=== PATIENT | male | born 1950 | race Caucasian/White ===

== ENCOUNTER 2020-09-06 13:06 | Inpatient (IN) ==
[2020-09-06] MEDS ORDERED: Isovue-370 500 ML BOTTLE IVP ONE (13:20)
[2020-09-06] MEDS ORDERED: Aspirin 81 MG TAB.CHEW PO ONE (13:20)
[2020-09-06 13:32] LABS: Hemoglobin 14.1 g/dL (12.9-16.9); Mean Corpuscular HGB Conc 32.8 g/dL (31.6-35.5); Mean Corpuscular Hemoglobin 26.4 pg (28.0-33.3); Mean Corpuscular Volume 80.4 fL (83.0-100.0); Mean Platelet Volume 11.4 fL (9.4-12.4); Platelet Count 223 K/mcL (140-400); Red Blood Count 5.35 M/mcL (4.19-5.50); White Blood Count 8.6 K/mcL (4.3-11.1)
[2020-09-06 13:39] LABS: INR 1.2; Prothrombin Time 13.8 Seconds (9.4-12.1)
[2020-09-06 13:41] LABS: Activated Partial Thrombo Time 29.8 Seconds (26.0-36.0)
[2020-09-06 13:50] LABS: BUN/Creatinine Ratio 20 (6-26); Blood Urea Nitrogen 23 mg/dL (8-23); Calcium 9.1 mg/dL (8.6-10.3); Carbon Dioxide 23 mEq/L (23-29); Chloride 107 mEq/L (98-107); Ethanol < 10 mg/dL (Less than 10); Glucose 147 mg/dL (70-105); Osmolality,Calculated 296 (280-300); Potassium 3.5 mEq/L (3.5-5.1); Sodium 140 mEq/L (136-145); eGFR For African Americans > 60 (> 60); eGFR For Non-African Americans > 60 (> 60)
[2020-09-06 13:59] LABS: Troponin I 0.06 ng/mL (< 0.04)
[2020-09-06 14:36] LABS: Bacteria,Urine Few per hpf (None-Few); Bilirubin,Urine Negative (Negative); Blood,Urine Small (Negative); Clarity,Urine Clear (Clear); Color,Urine Yellow (Yellow); Glucose,Urine (UA) Normal (Normal); Ketones,Urine 10 mg/dL (Negative); Leukocyte Esterase,Urine Large (Negative); Mucus,Urine Few per lpf (None-Few); Nitrite,Urine Positive (Negative); PH,Urine 6.5 pH Units (5.0-8.0); Protein,Urine Trace mg/dL (Neg-Trace); RBC,Urine 15-30 per hpf (0-3); Squamous Epithelial Cell,Urine Few per hpf (None-Few); Urobilinogen,Urine Normal (Normal); WBC,Urine 50-100 per hpf (0-3)
[2020-09-06] MEDS ORDERED: Perflutren Lipid Microsphere 1.3 ML in 0.9 % Sodium Chloride 8.7 ML IVP PRN (16:00)
[2020-09-06] MEDS ORDERED: Acetaminophen 325 MG TABLET PO PRN (16:00)
[2020-09-07 02:06] LABS: INR 1.3; Prothrombin Time 14.6 Seconds (9.4-12.1)
[2020-09-07 02:29] LABS: Alanine Aminotransferase 35 Units/L (7-52); Albumin/Globulin Ratio 1.3 (1.1-2.2); Alkaline Phosphatase 41 Units/L (34-104); Aspartate Amino Transferase 24 Units/L (13-39); BUN/Creatinine Ratio 17 (6-26); Bilirubin,Total 1.2 mg/dL (0.3-1.0); Blood Urea Nitrogen 21 mg/dL (8-23); Calcium 9.1 mg/dL (8.6-10.3); Carbon Dioxide 24 mEq/L (23-29); Chloride 108 mEq/L (98-107); Chol/HDL Ratio 3.6 (0-4.9); Cholesterol 98 mg/dL (< 200); Globulin 3.1 g/dL (2.4-3.5); Glucose 131 mg/dL (70-105); HDL Cholesterol 27 mg/dL (40-59); LDL Cholesterol,Calculated 48 mg/dL (< 100); Osmolality,Calculated 297 (280-300); Potassium 3.2 mEq/L (3.5-5.1); Sodium 141 mEq/L (136-145); Total Protein 7.1 g/dL (6.4-8.9); Triglycerides 117 mg/dL (< 150); Troponin I 0.06 ng/mL (< 0.04); eGFR For African Americans > 60 (> 60); eGFR For Non-African Americans 59 (> 60)
[2020-09-07 02:57] LABS: Estimated Average Glucose 154 mg/dl
[2020-09-07] MEDS: Aspirin Enteric Coated 81 MG Tablet PO SCH (08:30)
[2020-09-07] MEDS ORDERED: Thiamine (B-1) 100 MG in 0.9 % Sodium Chloride 50 ML IVPB SCH (11:15)
[2020-09-07] MEDS ORDERED: amLODIPine 5 MG TABLET PO SCH (15:15)
[2020-09-07] MEDS: lisinopriL 10 MG TABLET PO SCH (16:47)
[2020-09-07] MEDS: carvediloL 6.25 MG TABLET PO SCH (16:47)
[2020-09-08 06:35] LABS: Hematocrit 41.9 % (37.5-50.1); Hemoglobin 13.4 g/dL (12.9-16.9); Mean Corpuscular Hemoglobin 26.5 pg (28.0-33.3); Mean Corpuscular Volume 82.8 fL (83.0-100.0); Mean Platelet Volume 11.8 fL (9.4-12.4); Platelet Count 235 K/mcL (140-400); Red Blood Count 5.06 M/mcL (4.19-5.50); Red Cell Distribution Width 14.9 % (11.5-14.5); White Blood Count 9.5 K/mcL (4.3-11.1)
[2020-09-08 06:59] LABS: Alanine Aminotransferase 33 Units/L (7-52); Albumin 3.9 g/dL (3.5-5.7); Albumin/Globulin Ratio 1.3 (1.1-2.2); Alkaline Phosphatase 43 Units/L (34-104); Aspartate Amino Transferase 21 Units/L (13-39); BUN/Creatinine Ratio 19 (6-26); Blood Urea Nitrogen 24 mg/dL (8-23); Calcium 8.9 mg/dL (8.6-10.3); Carbon Dioxide 23 mEq/L (23-29); Chloride 109 mEq/L (98-107); Globulin 3.1 g/dL (2.4-3.5); Glucose 138 mg/dL (70-105); Osmolality,Calculated 298 (280-300); Potassium 3.6 mEq/L (3.5-5.1); Sodium 141 mEq/L (136-145); eGFR For African Americans > 60 (> 60); eGFR For Non-African Americans 57 (> 60)
[2020-09-08] MEDS: carvediloL 6.25 MG TABLET PO SCH ×2 (08:55→18:01)
[2020-09-08] MEDS: Aspirin Enteric Coated 81 MG Tablet PO SCH (08:55)
[2020-09-08] MEDS: lisinopriL 10 MG TABLET PO SCH (08:55)
[2020-09-08] MEDS: Finasteride 5 MG TABLET PO SCH (08:56)
[2020-09-08] MEDS ORDERED: Furosemide 20 MG/2 ML VIAL IVP ONE (14:48)
[2020-09-09 04:26] LABS: Hemoglobin 13.1 g/dL (12.9-16.9); Mean Corpuscular Hemoglobin 26.2 pg (28.0-33.3); Platelet Count 240 K/mcL (140-400); Red Cell Distribution Width 14.9 % (11.5-14.5); White Blood Count 9.7 K/mcL (4.3-11.1)
[2020-09-09 04:47] LABS: Albumin/Globulin Ratio 1.3 (1.1-2.2); Globulin 3.1 g/dL (2.4-3.5); Potassium 3.5 mEq/L (3.5-5.1); Total Protein 7.1 g/dL (6.4-8.9)
[2020-09-09] MEDS ORDERED: lisinopriL 20 MG TABLET PO SCH (09:00)
[2020-09-09] MEDS: Aspirin Enteric Coated 81 MG Tablet PO SCH (09:48)
[2020-09-09] MEDS: carvediloL 6.25 MG TABLET PO SCH (09:49)
[2020-09-09] MEDS: Finasteride 5 MG TABLET PO SCH (09:49)
[2020-09-09 12:18] VITALS: BP 161/94
[2020-09-10] MEDS ORDERED: Isosorbide MONOnitrate (24 HR) 30 MG TAB.ER.24H PO SCH (09:00)
== END 2020-09-09 14:50 | disposition home health service (06) | DRG 64 ==
LOC: 3BNU 13:06 → EMEROOARM 13:06 → SUATTDRO 14:46 → 3BNU 15:38
PROVIDERS: ADMIT Internal Medicine; ATTEND Registered Nurse

== ENCOUNTER 2022-01-01 21:18 | Observation (INO) ==
[2022-01-01] MEDS ORDERED: Iopamidol - 370 500 ML MLS IVP ONE (21:35)
[2022-01-01 21:45] LABS: Hematocrit 48.7 % (37.5-50.1); Hemoglobin 15.6 g/dL (12.9-16.9); Mean Corpuscular Hemoglobin 26.4 pg (28.0-33.3); Mean Corpuscular Volume 82.4 fL (83.0-100.0); Mean Platelet Volume 11.8 fL (9.4-12.4); Platelet Count 170 K/mcL (140-400); Red Blood Count 5.91 M/mcL (4.19-5.50); Red Cell Distribution Width 16.6 % (11.5-14.5)
[2022-01-01 21:52] LABS: INR 1.2; Prothrombin Time 13.7 Seconds (9.4-12.1)
[2022-01-01 21:55] LABS: Activated Partial Thrombo Time 32.1 Seconds (26.0-36.0)
[2022-01-01 22:05] LABS: Calcium 9.3 mg/dL (8.6-10.3)
[2022-01-01 22:11] LABS: Troponin I 0.06 ng/mL (< 0.04)
[2022-01-01 22:50] LABS: Bacteria,Urine Few per hpf (None-Few); Bilirubin,Urine Negative (Negative); Blood,Urine Small (Negative); Clarity,Urine Turbid (Clear); Color,Urine Light-Yellow (Yellow); Glucose,Urine (UA) >=1000 mg/dL (Normal); Ketones,Urine Negative (Negative); Leukocyte Esterase,Urine Large (Negative); Mucus,Urine Few per lpf (None-Few); Nitrite,Urine Positive (Negative); Protein,Urine Negative (Neg-Trace); Specific Gravity,Urine 1.023 (1.010-1.025); Squamous Epithelial Cell,Urine Few per hpf (None-Few); Urobilinogen,Urine Normal (Normal); WBC,Urine TNTC per hpf (0-3)
[2022-01-01] MEDS ORDERED: Aspirin 81 MG TAB.CHEW PO STA (22:55)
[2022-01-01] MEDS ORDERED: cefTRIAXone 1,000 MG in 0.9 % Sodium Chloride 10 ML IVP ONE (22:55)
[2022-01-01] MEDS ORDERED: 0.9 % Sodium Chloride 1,000 ML IVC ONE (22:55)
[2022-01-01] MEDS ORDERED: Ondansetron ODT 4 MG TAB.RAPDIS SL PRN (23:06)
[2022-01-01] MEDS ORDERED: Melatonin 3 MG TABLET PO PRN (23:06)
[2022-01-01] MEDS ORDERED: Naloxone 0.4 MG/ML INJ IVP PRN (23:06)
[2022-01-02 06:46] LABS: Basophils % 0.3 %; Eosinophils % 0.3 %; Hemoglobin 14.1 g/dL (12.9-16.9); Immature Granulocytes % 0.4 % (0-4); Lymphocytes # 1.4 K/mcL (0.6-4.6); Lymphocytes % 10.4 %; Mean Platelet Volume 11.3 fL (9.4-12.4); Monocytes # 1.1 K/mcL (0.0-1.3); Monocytes % 7.8 %; Platelet Count 150 K/mcL (140-400); Red Blood Count 5.43 M/mcL (4.19-5.50); Segmented Neutrophils % 80.8 %; White Blood Count 13.6 K/mcL (4.3-11.1)
[2022-01-02 07:09] LABS: Alanine Aminotransferase 60 Units/L (7-52); Albumin 3.8 g/dL (3.5-5.7); Albumin/Globulin Ratio 1.5 (1.1-2.2); Alkaline Phosphatase 46 Units/L (34-104); Aspartate Amino Transferase 53 Units/L (13-39); BUN/Creatinine Ratio 16 (6-26); Bilirubin,Total 1.8 mg/dL (0.3-1.0); Blood Urea Nitrogen 21 mg/dL (8-23); Calcium 8.4 mg/dL (8.6-10.3); Carbon Dioxide 24 mEq/L (23-29); Chloride 107 mEq/L (98-107); Globulin 2.5 g/dL (2.4-3.5); Glucose 122 mg/dL (70-105); Magnesium 2.1 mg/dL (1.6-2.6); Osmolality,Calculated 292 (280-300); Phosphorous 3.8 mg/dL (2.7-4.5); Potassium 3.4 mEq/L (3.5-5.1); Sodium 139 mEq/L (136-145); Total Protein 6.3 g/dL (6.4-8.9); Troponin I 0.07 ng/mL (< 0.04); eGFR For African Americans > 60 (> 60); eGFR For Non-African Americans 53 (> 60)
[2022-01-02] MEDS ORDERED: Aspirin Enteric Coated 81 MG Tablet PO SCH (09:00)
[2022-01-02] MEDS ORDERED: Finasteride 5 MG TABLET PO SCH (09:00)
[2022-01-02 12:17] VITALS: TEMP 97.7
[2022-01-02] MEDS ORDERED: carvediloL 25 MG TABLET PO SCH (17:00)
[2022-01-02 17:25] VITALS: BP 155/81; PULSE 68; O2SAT 95
[2022-01-02] MEDS ORDERED: cefTRIAXone 1,000 MG in 0.9 % Sodium Chloride Mini Bag 100 ML IVPB SCH (21:00)
[2022-01-02] MEDS ORDERED: Sacubitril/Valsartan 49/51 MG 1 TABLET PO SCH (21:00)
[2022-01-03] MEDS ORDERED: Eplerenone [Inspra] 25 MG Tablet PO SCH (09:00)
[2022-01-03] MEDS ORDERED: Dapagliflozin Propanediol [Farxiga] 10 MG Tablet PO SCH (09:00)
== END 2022-01-02 18:03 | disposition home or self-care (01) ==
LOC: EMEROOARM 21:18 → 2ANU 21:18 → SUATTDRO 01-02 06:46 → 2ANU 01-02 08:43
PROVIDERS: ADMIT Internal Medicine; ATTEND Family Medicine